=== PATIENT | female | born 1975 | race African-American/Black ===

== ENCOUNTER 2017-02-02 23:01 | Emergency (ER) | payer SELFPAY ==
[~2017-02-02] VITALS: Ht 170.2 cm; Wt 69.9 kg
[2017-02-02] MEDS ORDERED: NKM (23:26)
[2017-02-02 23:57] LABS: KETONES,URINE NEGATIVE (NEGATIVE); LEUKOCYTE ESTERASE ,URINE 3+ (NEGATIVE); NITRITE,URINE NEGATIVE (NEGATIVE); PH,URINE 7 (4.5-8.0); PROTEIN,URINE NEGATIVE (NEGATIVE); UROBILINOGEN,URINE NORMAL MG/DL (0.0-1.0)
[2017-02-03 00:12] LABS: APPEARANCE,URINE SLIGHTLY CLOUDY
[2017-02-03 00:13] LABS: BACTERIA,URINE FEW /HPF; SQUAMOUS EPITHELIAL CELL,UR FEW /LPF (NONE/OCC); WBC,URINE TNTC /HPF (0 - 2)
[2017-02-03] MEDS ORDERED: NITROFURANTOIN100 M2 ORAL (00:22)
[2017-02-03 00:28] VITALS: BP 103/65
[2017-02-03 00:33] VITALS: BP 103/65
--- NOTE | 2017-02-03 01:37 | Emergency Room Report ---
History of Present Illness General Chief Complaint: Female Urogenital Problems Source: Patient Present Illness HPI [id number] [employer] patient with 1 day dysuria, hematuria Denies fever/chills, abd pain, nausea/vomiting, flank pain Feels like UTI she has had before Allergies: Coded Allergies: No Known Allergies (Unverified , 02/02/17) Patient History Past Medical History: none Past Surgical History: none Pertinent Family History: none Last Menstrual Period: "last week" Now: No Immunizations: UTD Reviewed Nursing Documentation: PMH: Agreed, PSxH: Agreed Nursing Documentation-PMH Past Medical History: No Stated History Review of Systems All Other Systems: negative except mentioned in HPI Physical Exam Vital Signs Date Time Temp Pulse Resp B/P Pulse Ox O2 Delivery O2 Flow Rate FiO2 02/02/17 23:23 98.1 83 16 103/65 99 Room Air Sp02 EP Interpretation: reviewed, normal General Appearance: normal inspection, well appearing, no apparent distress, alert Head: atraumatic ENT: normal ENT inspection, hearing grossly normal, normal voice Neck: normal inspection, full range of motion, supple, no bony tend Respiratory: normal inspection, lungs clear, normal breath sounds, no respiratory distress, no retraction, no wheezing Cardiovascular #1: regular rate, rhythm, no edema Gastrointestinal: normal inspection, normal bowel sounds, non tender, soft, no guarding, no hernia Genitourinary: no CVA tenderness Musculoskeletal: normal inspection, back normal, normal range of motion, Anamaria' s Sign negative Neurologic: normal inspection, alert, oriented x3, responsive, 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, motor strength/tone normal, speech normal Psychiatric: normal inspection, judgement/insight normal, mood/affect normal Skin: normal inspection, normal color, no rash Lymphatic: normal inspection Medical Decision Making Diagnostic Impression: Primary Impression: Dysuria Additional Impression: UTI (urinary tract infection) Qualified Codes: N30.01 - Acute cystitis with hematuria ER Course Urine preg negative UA grossly infected Rx Macrobid Dc home Last Vital Signs Date Time Temp Pulse Resp B/P Pulse Ox O2 Delivery O2 Flow Rate FiO2 02/03/17 00:33 98.1 62 16 103/65 99 Room Air Status: improved Disposition: HOME, SELF-CARE Condition: Improved Scripts Nitrofurantoin Monohyd/M-Cryst* (MACROBID 100 MG*) 100 Mg Capsule 100 MG ORAL EVERY 12 HOURS for 7 Days, #14 CAP Prov: YANA KRAFT M.D. 02/03/17 Referrals: NOT CHOSEN IPA/,REFERRING (PCP) Patient Instructions: Urinary Tract Infection YANA KRAFT M.D. Feb 03, 2017 01:37
== END 2017-02-03 00:45 | disposition home or self-care (01) ==
LOC: EMR 23:25
DX: N30.01 Acute cystitis with hematuria (principal); R30.0 Dysuria
CPT/HCPCS: 81003; 81025; 87086; 87181; 99283